=== PATIENT | female | born 1985 | race Hispanic/Latino ===

== ENCOUNTER 2021-06-16 07:45 | Day surgery (SDC) | payer MEDICAID ==
[~2021-06-16 07:45] MED LIST: Lactated Ringers 1,000 ML IV SCH; Lidocaine 1%/Sod Bicarbonate in NS 8.4% 1 ML Syringe IDERM PRN; Sodium Chloride 0.9% 10 ML Syringe FLUSH PRN
--- NOTE | 2021-06-16 08:04 | PCM.PREANE ---
Preanesthetic Assessment - Procedure Proposed Procedure: excision of lipoma left chest wall - Anesthesia/Transfusion/Family Hx Anesthesia History: Prior Anesthesia Without Reaction Family History of Anesthesia Reaction: No Transfusion History: No Prior Transfusion(s) - Review of Systems General: No Symptoms Pulmonary: No Symptoms Cardiovascular: Other (rapid heart rate) Gastrointestinal: No Symptoms Neurological: No Symptoms Other: Reports: Thyroid Problems (hypothyroid) - Physical Assessment NPO Status Date: 06/15/21 NPO Status Time: 00:00 Height: 1.68 m Weight: 93 kg ASA Class: 2 Mental Status: Alert & Oriented x3 Airway Class: Mallampati = 1 Dentition: Reports: Normal Dentition Thyro-Mental Finger Breadths: 3 Mouth Opening Finger Breadths: 3 ROM/Head Extension: Full Lungs: Clear to Auscultation, Normal Respiratory Effort Cardiovascular: Regular Rate, Regular Rhythm - Blood Blood Available: No Product(s) Available: None - Anesthesia Plan Pre-Op Medication Ordered: None - Acknowledgements Anesthesia Type Planned: MAC Pt an Appropriate Candidate for the Planned Anesthesia: Yes Alternatives and Risks of Anesthesia Discussed w Pt/Guardian: Yes Pt/Guardian Understands and Agrees with Anesthesia Plan: Yes PreAnesthesia Questionnaire Gastrointestinal History: Reports: GERD - SUBSTANCE USE Tobacco Use Status *Q: Never Tobacco User Tobacco Use Within Last Twelve Months: No Second Hand Smoke Exposure: No Days Per Week of Alcohol Use: 0 Number of Drinks Per Day: 0 Total Drinks Per Week: 0 Recreational Drug Use History: No - CURRENT (IN HOUSE) MEDS Current Meds: Current Medications Lactated Ringer's (Ringers, Lactated) 1,000 mls @ 125 mls/hr IV ASDIRECTED ELIGIO Stop: 06/16/21 23:00 Lidocaine/Sodium Bicarbonate (Lidocaine 1%/Sod Bicarbonate In Ns 8.4% 1 Ml Syringe) 0.25 ml IDERM ONETIME PRN PRN Reason: Prior to IV Start Stop: 06/16/21 18:00 Sodium Chloride (Sodium Chloride 0.9% 10 Ml Syringe) 10 ml FLUSH ASDIRECTED PRN PRN Reason: Keep Vein Open Stop: 06/16/21 18:00
[2021-06-16] MEDS ORDERED: Propofol 200 MG/20 ML SDV ONE ×3 (08:20→09:24)
[2021-06-16] MEDS ORDERED: Ondansetron 4 MG/2 ML SDV ONE (08:20)
[2021-06-16] MEDS ORDERED: Midazolam 1 MG/ML 2 ML SDV ONE (08:20)
[2021-06-16] MEDS ORDERED: fentaNYL 100 MCG/2 ML SDV ONE (08:20)
[2021-06-16] MEDS ORDERED: Lidocaine 1% 4 ML ONE (08:21)
[2021-06-16] MEDS ORDERED: Bupivacaine 0.5%/EPINEPHrine 1:200,000 50 ML MDV ONE (08:23)
[2021-06-16] MEDS ORDERED: Lidocaine 1% with EPINEPHrine 1:100,000 10 ML MDV ONE (08:23)
[2021-06-16] MEDS ORDERED: Lactated Ringers 1,000 ML ONE (09:19)
--- NOTE | 2021-06-16 09:43 | PCM.PRNOTE ---
- Free Text/Narrative Note: Date: 06/16/2021 Operation: excision of large left back lipoma Surgeon: Clinton White MD Findings: 10 x 8 x 4 cm lipoma deep to the latissimus excised intact Detailed Report: The patient was taken to the operating room and placed in right lateral decubitus position. Timeout was performed and monitored anesthesia care was initiated. The back was prepped and draped in usual sterile fashion. The soft tissue mass was palpated and a linear incision overlying the long aspect of the lesion was made in transverse orientation after injecting 20 cc of 0.5% Marcaine with epinephrine along the planned site of incision. Dissection was carried down through subcutaneous tissue. The mass felt deep to the latissimus muscle. Self-retaining retractors were placed and muscle fibers were split medially and laterally in order to expose the mass which appeared grossly consistent with a large lipoma. Blunt digital dissection was performed to free the lipoma from surrounding attachments. The mass easily from surrounding soft tissue. The excision was extended to the point that the mass could be expressed through the incision without disruption of the mass. A 10 x 8 x 4 cm well- circumscribed lipoma was successfully removed intact and the specimen was sent for analysis. The dissection field appeared clean and dry and hemostasis was satisfactory. The wound was closed in layers, with running 3-0 Vicryl used to close at the level of muscle, and several interrupted 3-0 Vicryl was used for deep dermal closure. Skin was closed with running 4-0 Vicryl suture and dressed with Dermabond. The patient tolerated the procedure well.
[2021-06-16] MEDS ORDERED: oxyCODONE 5 MG Tab PO ONE (11:00)
== END 2021-06-16 11:41 | disposition home or self-care (01) ==
LOC: JD.SDS 07:45
PROVIDERS: ATTEND Surgery
DX: D17.1 Benign lipomatous neoplasm of skin and subcutaneous tissue of trunk (principal); Z79.899 Other long term (current) drug therapy; Z98.890 Other specified postprocedural states
CPT/HCPCS: 21933; 81025; A9270; J2250; J2405; J2704; J3010; J3490; J7120; 00400

== ENCOUNTER 2021-09-01 09:17 | Day surgery (SDC) | payer MEDICAID ==
--- NOTE | 2021-09-01 10:11 | PCM.PREANE ---
Preanesthetic Assessment - Anesthesia/Transfusion/Family Hx Anesthesia History: Prior Anesthesia Without Reaction Family History of Anesthesia Reaction: No Transfusion History: No Prior Transfusion(s) - Review of Systems General: Other (s/p covid, no current symptoms for 1+ month, denies HCG, waiver signed) Pulmonary: Other (GILMA with CPAP) Cardiovascular: No Symptoms, Other (hx of high heart rate, 110 today) Gastrointestinal: No Symptoms (heartburn states food related, denies any this am) Neurological: No Symptoms Other: Reports: Thyroid Problems - Physical Assessment NPO Status Date: 08/31/21 NPO Status Time: 23:00 Vital Signs: Last Vital Signs Temp 37.1 C 09/01/21 09:30 Pulse 110 H 09/01/21 09:30 Resp 16 09/01/21 09:30 BP 144/83 H 09/01/21 09:30 Pulse Ox 95 09/01/21 09:30 Height: 1.6 m Weight: 93 kg ASA Class: 2 Mental Status: Alert & Oriented x3 Airway Class: Mallampati = 2 Dentition: Reports: Normal Dentition Thyro-Mental Finger Breadths: 3 Mouth Opening Finger Breadths: 3 ROM/Head Extension: Full Lungs: Clear to Auscultation, Normal Respiratory Effort Cardiovascular: Regular Rate, Regular Rhythm - Allergies Allergies/Adverse Reactions: Allergies Allergy/AdvReac Type Severity Reaction Status Date / Time No Known Allergies Allergy Verified 09/01/21 09:58 - Blood Blood Available: No Product(s) Available: None - Anesthesia Plan Pre-Op Medication Ordered: None - Acknowledgements Anesthesia Type Planned: MAC Pt an Appropriate Candidate for the Planned Anesthesia: Yes Alternatives and Risks of Anesthesia Discussed w Pt/Guardian: Yes Pt/Guardian Understands and Agrees with Anesthesia Plan: Yes PreAnesthesia Questionnaire HEENT History: Reports: Impaired Vision, Other (See Below) Other HEENT History: wears glasses Cardiovascular History: Reports: None Respiratory History: Reports: Sleep Apnea Gastrointestinal History: Reports: GERD Genitourinary History: Reports: Chronic Renal Insuffiency [employer] History: Reports: Other (See Below) Other OB/BYN History: breast cyst, vaginal discharge Musculoskeletal History: Reports: None Neurological History: Reports: None Psychiatric History: Reports: None Endocrine/Metabolic History: Reports: Hypothyroidism Hematologic History: Reports: None Immunologic History: Reports: None Oncologic (Cancer) History: Reports: None Dermatologic History: Reports: Other (See Below) Other Dermatologic History: lipoma excision - Infectious Disease History Infectious Disease History: Reports: Novel Coronavirus - Past Surgical History Head Surgeries/Procedures: Reports: None HEENT Surgical History: Reports: None Cardiovascular Surgical History: Reports: None Respiratory Surgical History: Reports: None GI Surgical History: Reports: None Female Surgical History: Reports: Section Endocrine Surgical History: Reports: None Neurological Surgical History: Reports: None Musculoskeletal Surgical History: Reports: None Oncologic Surgical History: Reports: None Dermatological Surgical History: Reports: None - SUBSTANCE USE Tobacco Use Status *Q: Never Tobacco User Recreational Drug Use History: No - HOME MEDS Home Medications: Home Meds Ascorbic Acid [Vitamin C] 1,000 mg PO DAILY 08/31/21 [History] norgestimate-ethinyl estradioL [Sprintec 28 Day Tablet] 1 tab PO DAILY 08/31/21 [History] - CURRENT (IN HOUSE) MEDS Current Meds: Current Medications Lactated Ringer's (Ringers, Lactated) 1,000 mls @ 125 mls/hr IV ASDIRECTED ELIGIO Stop: 09/01/21 23:00 Last Admin: 09/01/21 09:58 Dose: 125 mls/hr Documented by: Lidocaine/Sodium Bicarbonate (Lidocaine 1%/Sod Bicarbonate In Ns 8.4% 1 Ml Syringe) 0.25 ml IDERM ONETIME PRN PRN Reason: Prior to IV Start Stop: 09/01/21 18:00 Sodium Chloride (Sodium Chloride 0.9% 10 Ml Syringe) 10 ml FLUSH ASDIRECTED PRN PRN Reason: Keep Vein Open Stop: 09/01/21 18:00
[2021-09-01] MEDS ORDERED: Ondansetron 4 MG/2 ML SDV ONE (10:14)
[2021-09-01] MEDS ORDERED: Midazolam 1 MG/ML 2 ML SDV ONE (10:15)
[2021-09-01] MEDS ORDERED: fentaNYL 100 MCG/2 ML SDV ONE (10:15)
[2021-09-01] MEDS ORDERED: Propofol 200 MG/20 ML SDV ONE ×2 (10:15→11:40)
[2021-09-01] MEDS ORDERED: Lidocaine 1% 4 ML ONE (10:17)
[2021-09-01] MEDS ORDERED: Bupivacaine 0.5% 30 ML SDV ONE (11:12)
[2021-09-01] MEDS ORDERED: Ketamine 500 mg/10 ML MDV ONE (11:22)
--- NOTE | 2021-09-01 12:30 | PCM48HPAN ---
Post Anesthesia Note - EVALUATION WITHIN 48HRS OF ANESTHETIC Vital Signs in Normal Range: Yes Patient Participated in Evaluation: Yes Respiratory Function Stable: Yes Airway Patent: Yes Cardiovascular Function Stable: Yes Hydration Status Stable: Yes Pain Control Satisfactory: Yes Nausea and Vomiting Control Satisfactory: Yes Mental Status Recovered: Yes Vital Signs: Last Vital Signs Temp 37.1 C 09/01/21 09:30 Pulse 110 H 09/01/21 09:30 Resp 16 09/01/21 09:30 BP 144/83 H 09/01/21 09:30 Pulse Ox 95 09/01/21 09:30
--- NOTE | 2021-09-01 12:33 | PCM.PRNOTE ---
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 Detailed Report: The patient was taken to the operating room placed on the table in supine p osition. Timeout was performed and monitored anesthesia care was initiated. The lesion had been marked prior to start of the case on the right breast. The right chest was prepped and draped in usual sterile fashion. With the title i instructional assistant applying pressure in order to bring the palpable lesion toward the surfaces of the skin, 10 cc of 0.5% Marcaine with epinephrine was injected intradermally over the planned incision site. A 3 cm radially oriented incision was made over the palpable lesion using a 15 blade scalpel, approximately 3 cm from the edge of the areola at the 6 o'clock position. The lesion was from surrounding breast parenchyma using a hemostat. The posterior aspect of the lesion was fairly adherent to the underlying tissue, and monopolar energy was used to free the lesion entirely. The specimen appeared grossly consistent with a benign fibroadenoma, with an egg-shaped appearance and approximate size measurements of 3 cm x 2 cm x 2 cm. The specimen was placed in formalin and sent for pathologic analysis. The dissection field appeared clean and dry. The cavity was irrigated with diluted hydrogen peroxide. The incision was closed in layers with interrupted 3 oh deep dermal Vicryl sutures and running 4-0 subcuticular Vicryl. The wound was dressed with Dermabond and gauze padding and a compression bra were applied. The patient tolerated the procedure well.
== END 2021-09-01 13:59 | disposition home or self-care (01) ==
LOC: JD.SDS 09:17
PROVIDERS: ATTEND Surgery
DX: D24.1 Benign neoplasm of right breast (principal); E03.9 Hypothyroidism, unspecified; E28.2 Polycystic ovarian syndrome; G47.33 Obstructive sleep apnea (adult) (pediatric); K21.9 Gastro-esophageal reflux disease without esophagitis; N18.9 Chronic kidney disease, unspecified; Z79.899 Other long term (current) drug therapy; Z98.890 Other specified postprocedural states
CPT/HCPCS: 19120; J2250; J2405; J2704; J3010; J3490; J7120; 00400

== ENCOUNTER 2023-05-06 07:41 | Emergency (ER) | payer MEDICAID ==
[2023-05-06 08:39] LABS: APPEARANCE,URINE CLEAR (Clear); BILIRUBIN,URINE NEGATIVE (Negative); COLOR,URINE AMBER (Yellow); GLUCOSE,URINE NEGATIVE (Negative); KETONES,URINE NEGATIVE (Negative); LEUKOCYTE ESTERASE,URINE 3+ (Negative); NITRITE,URINE NEGATIVE (Negative); OCCULT BLOOD,URINE 3+ (Negative); PROTEIN,URINE 2+ (Negative); UROBILINOGEN,URINE 0.2 (0.2-1.0)
[2023-05-06 08:50] LABS: BACTERIA,URINE MODERATE /hpf (FEW); MUCUS,URINE MODERATE /hpf (FEW); RBC,URINE >100 /hpf (0-5); WBC,URINE >100 /hpf (0-5)
== END 2023-05-06 09:44 | disposition home or self-care (01) ==
LOC: JD.ED 07:41
DX: N39.0 Urinary tract infection, site not specified (principal); I12.9 Hypertensive chronic kidney disease with stage 1 through stage 4 chronic kidney disease, or unspecified chronic kidney disease; K21.9 Gastro-esophageal reflux disease without esophagitis; N18.9 Chronic kidney disease, unspecified; E03.9 Hypothyroidism, unspecified; Z79.899 Other long term (current) drug therapy; Z86.16 Personal history of COVID-19
CPT/HCPCS: 81001; 81025; 99284